=== PATIENT | female | born 1940 | race African-American/Black ===

== ENCOUNTER 2017-06-28 07:37 | Outpatient (CLI) | payer MEDICARE | END 2017-06-28 07:38 | disposition home or self-care (01) | LOC: BICMAMMO 07:37 | PROVIDERS: ATTEND Specialist | DX: Z12.31 Encounter for screening mammogram for malignant neoplasm of breast (principal) | CPT/HCPCS: 77063; G0202; 77067 ==

== ENCOUNTER 2018-09-23 09:59 | Outpatient (CLI) | payer MEDICARE ==
--- NOTE | 2018-09-23 13:01 | BD ---
BONE DENSITOMETRY USING DEXA: Date: 09/23/18 HISTORY: Postmenopausal screening for osteoporosis. FINDINGS: Lumbar Spine: BMD (g/cm2) L1 0.974 T-Score: -0.1 Z-Score: 1.6 L2 1.080 T-Score: 0.5 Z-Score: 2.4 L3 1.205 T-Score: 1.1 Z-Score: 3.1 L4 1.173 T-Score: 1.0 Z-Score: 3.1 L1-L4 1.113 T-Score: 0.6 Z-Score: 2.6 Femoral Neck: 0.572 T-Score: -2.5 Z-Score: -0.9 Total Femur: 0.750 T-Score: -1.6 Z-Score: -0.3 IMPRESSION: Osteoporosis. POS: OFF
--- NOTE | 2018-09-24 15:33 | MMO ---
Bilateral MAMMO Bilat Screen [facility]. CLINICAL HISTORY: Patient is 78 years old and is seen for screening. The patient has the following family history of breast cancer: maternal aunt, at age 75. The patient has no personal history of cancer. The patient has a history of left Excisional Biopsy in May, - adh. VIEWS: The views performed were: bilateral craniocaudal with tomosynthesis and bilateral mediolateral oblique with tomosynthesis. FILMS COMPARED: The present examination has been compared to prior imaging studies performed at [facility] on 07/11/2000, 06/25/2002, 01/21/2004, 02/02/2004, 07/28/2004, 01/23/2005, 02/01/2006, 02/27/2007, 03/12/2008, 03/15/2009, 03/22/2010, 03/26/2011, 05/25/2013, 05/26/2014, 06/17/2015, 06/21/2016 and 06/28/2017. MAMMOGRAM FINDINGS: There are scattered fibroglandular densities. Finding 1: No suspicious calcifications or masses are seen. Benign calcifications are noted bilaterally. Finding 2: There is a stable post-surgical scar seen in the left breast. IMPRESSION: ALL ABOVE FINDINGS ARE BENIGN. A ROUTINE FOLLOW-UP MAMMOGRAM IN 1 YEAR IS RECOMMENDED. THE RESULTS OF THIS EXAM WERE SENT TO THE PATIENT. ACR BI-RADS Category 2 - Benign finding MAMMOGRAPHY NOTE: 1. A negative mammogram report should not delay a biopsy if a dominant of clinically suspicious mass is present. 2. Approximately 10% to 15% of breast cancers are not detected by mammography. 3. Adenosis and dense breasts may obscure an underlying neoplasm.
== END 2018-09-23 10:00 | disposition home or self-care (01) ==
LOC: BICMAMMO 09:59
PROVIDERS: ATTEND Specialist
DX: Z12.31 Encounter for screening mammogram for malignant neoplasm of breast (principal); Z13.820 Encounter for screening for osteoporosis; M81.0 Age-related osteoporosis without current pathological fracture; Z80.3 Family history of malignant neoplasm of breast; Z98.890 Other specified postprocedural states
CPT/HCPCS: 77063; 77067; 77080

== ENCOUNTER 2019-09-30 13:53 | Outpatient (CLI) | payer MEDICARE ==
--- NOTE | 2019-09-30 15:02 | MMO ---
Bilateral MAMMO Bilat Screen [facility]. CLINICAL HISTORY: Patient is 79 years old and is seen for screening. The patient has the following family history of breast cancer: maternal aunt, at age 75. The patient has no personal history of cancer. The patient has a history of left Excisional Biopsy in May, - . VIEWS: The views performed were: bilateral craniocaudal with tomosynthesis; bilateral mediolateral oblique with tomosynthesis; and right mediolateral oblique. FILMS COMPARED: The present examination has been compared to prior imaging studies performed at [facility] on 06/21/2016, 06/28/2017 and 09/23/2018. This study has been interpreted with the assistance of computer-aided detection. MAMMOGRAM FINDINGS: There are scattered fibroglandular densities. There is a stable post-surgical scar seen in the left breast. There are no suspicious masses, suspicious calcifications, or new areas of architectural distortion. IMPRESSION: THERE IS NO MAMMOGRAPHIC EVIDENCE OF MALIGNANCY. A ROUTINE FOLLOW-UP MAMMOGRAM IN 1 YEAR IS RECOMMENDED. THE RESULTS OF THIS EXAM WERE SENT TO THE PATIENT. ACR BI-RADS Category 2 - Benign finding MAMMOGRAPHY NOTE: 1. A negative mammogram report should not delay a biopsy if a dominant of clinically suspicious mass is present. 2. Approximately 10% to 15% of breast cancers are not detected by mammography. 3. Adenosis and dense breasts may obscure an underlying neoplasm. Reported by: INDIRA GRAVES MD Electonically Signed: [id number]
== END 2019-09-30 13:54 | disposition home or self-care (01) ==
LOC: BICMAMMO 13:53
PROVIDERS: ATTEND Specialist
DX: Z12.31 Encounter for screening mammogram for malignant neoplasm of breast (principal); Z80.3 Family history of malignant neoplasm of breast; Z91.89 Other specified personal risk factors, not elsewhere classified
CPT/HCPCS: 77063; 77067

== ENCOUNTER 2020-10-10 13:03 | Outpatient (CLI) | payer MEDICARE | END 2020-10-10 13:04 | disposition home or self-care (01) | LOC: BICMAMMO 13:03 | PROVIDERS: ATTEND Specialist | DX: Z12.31 Encounter for screening mammogram for malignant neoplasm of breast (principal); M81.0 Age-related osteoporosis without current pathological fracture; M85.89 Other specified disorders of bone density and structure, multiple sites; Z80.3 Family history of malignant neoplasm of breast | CPT/HCPCS: 77063; 77067; 77080 ==

== ENCOUNTER 2023-02-03 13:09 | Inpatient (IN) | payer MEDICARE, OTHER ==
[2023-02-03 13:59] LABS: Bacteria/HPF None Seen HPF (None Seen); Bilirubin Negative (Negative); Blood, Urine Negative (Negative); CAUTI Indications for Culture Alt mental st,lethar; Clarity Clear (Clear); Glucose, Urine (Dipstick) Normal (Negative); Ketone, Urine Negative (Negative); Leukocyte Negative Leu/uL (Negative); Nitrite Negative (Negative); Protein, Urine (Dipstick) Negative (Neg-Trace); RBC/HPF 0-3 HPF (0-3); Specific Gravity, Urine 1.017 (1.002-1.036); Squamous Epithelial 0-3 HPF (0-3); Urobilinogen Normal mg/dL (Less than 2); WBC/HPF 0-3 HPF (0-3); pH, Urine 7.5 (5.0-9.0)
[2023-02-03 14:02] LABS: Urine Culture Reflex No No
[2023-02-03 14:17] LABS: #Basophils 0.1 thou/uL (0.0-0.2); #Eosinphils 0.3 thou/uL (0.0-0.7); #Monocytes 0.6 thou/uL (0.11-0.59); #Neutrophils 4.6 thou/uL (1.40-6.50); %Basophils 0.8 % (0.0-1.0); %Eosinophils 3.5 % (0.0-10.0); %Lymphocytes 28.1 % (21.0-51.0); %Monocytes 8.2 % (0.0-10.0); %Neutrophils 59.1 % (42.0-75.0); Hemoglobin 12.4 g/dL (12.0-16.0); Mean Corpuscular HGB CONC 30.8 g/dL (32.0-36.0); Mean Corpuscular Hemoglobin 29.6 pg (27.0-31.0); Mean Corpuscular Volume 96.2 fl (78.0-98.0); Mean Platelet Volume 10.5 fL (7.4-10.4); Platelet Count 235 10x3/uL (130-400); RBC Distribution Width 14.7 % (11.5-14.5); Red Blood Cell (RBC) Count 4.19 mill/uL (4.20-5.40); White Blood Cell (WBC) Count 7.8 10x3/uL (4.8-10.8)
[2023-02-03 14:39] LABS: ALT (SGPT) 22 U/L (8-55); AST (SGOT) 24 U/L (5-34); Albumin 4.2 g/dL (3.4-4.8); Alkaline Phosphatase 45 U/L (40-110); Anion Gap 15 mmol/L (10-20); BUN (Urea Nitrogen) 32 mg/dL (9.8-20.1); Bilirubin, Total 0.2 mg/dL (0.2-1.2); Calc. Creatinine Clearance 0 mL/min (70-130); Calcium 9.3 mg/dL (7.8-10.44); Carbon Dioxide 25 mmol/L (23-31); Chloride 105 mmol/L (98-107); Estimated GFR 43; Glucose 115 mg/dL (83-110); Potassium 5.4 mmol/L (3.5-5.1); Protein, Total 7.2 g/dL (5.8-8.1); Sodium 140 mmol/L (136-145)
[2023-02-03] MEDS ORDERED: hydrALAZINE 20 MG/ML VIAL ONE (15:36)
[2023-02-03] MEDS ORDERED: Acetaminophen 325 MG TAB PO PRN (16:59)
[2023-02-03] MEDS ORDERED: Senokot S 8.6-50 MG TAB PO PRN (16:59)
[2023-02-03] MEDS ORDERED: Ondansetron PF 4 MG/2 ML Vial IVP PRN (16:59)
[2023-02-03] MEDS ORDERED: Zolpidem Tartrate 5 MG TAB PO PRN (16:59)
[2023-02-03] MEDS ORDERED: cloNIDine 0.1 MG TAB PO PRN (17:21)
[2023-02-03] MEDS ORDERED: Lorazepam 0.5 MG TAB PO PRN (17:22)
[2023-02-03 17:26] VITALS: BMI 22.1
[2023-02-03 18:01] LABS: Hemoglobin A1c 5.3 % (4.0-6.0)
[2023-02-03] MEDS: Sodium Chloride 0.9% 1,000 ML IV SCH (18:13)
[2023-02-03 18:15] LABS: Cardiac Risk 2.3 (Less than 4.5)
[2023-02-03 18:21] LABS: Troponin I Less than 0.010 ng/mL (< 0.028)
[2023-02-03 19:00] LABS: SARS-CoV-2 NAA Rapid Test Not Detected (NotDetected)
[2023-02-03] MEDS ORDERED: Famotidine 20 MG TAB PO SCH (21:00)
[2023-02-03] MEDS: Timolol 0.5% Ophth Soln 5 ml Bottle EA EYE SCH (21:07)
[2023-02-03] MEDS: Mirtazapine 30 MG TAB PO SCH (21:07)
[2023-02-03] MEDS: Atorvastatin Calcium 20 MG TAB PO SCH (21:07)
[2023-02-03 22:04] LABS: Troponin I Less than 0.010 ng/mL (< 0.028)
[2023-02-04] MEDS: Sodium Chloride 0.9% 1,000 ML IV SCH (02:07)
[2023-02-04 05:28] LABS: #Basophils 0.1 thou/uL (0.0-0.2); #Eosinphils 0.3 thou/uL (0.0-0.7); #Monocytes 0.5 thou/uL (0.11-0.59); #Neutrophils 3.1 thou/uL (1.40-6.50); %Lymphocytes 36.9 % (21.0-51.0); %Monocytes 8.4 % (0.0-10.0); %Neutrophils 49.5 % (42.0-75.0); Hemoglobin 11.6 g/dL (12.0-16.0); Mean Corpuscular HGB CONC 31.4 g/dL (32.0-36.0); Mean Corpuscular Hemoglobin 29.8 pg (27.0-31.0); Mean Corpuscular Volume 95.1 fl (78.0-98.0); Mean Platelet Volume 10.5 fL (7.4-10.4); Platelet Count 209 10x3/uL (130-400); Red Blood Cell (RBC) Count 3.89 mill/uL (4.20-5.40); White Blood Cell (WBC) Count 6.3 10x3/uL (4.8-10.8)
[2023-02-04 05:58] LABS: Anion Gap 12 mmol/L (10-20); BUN (Urea Nitrogen) 29 mg/dL (9.8-20.1); Calc. Creatinine Clearance 35 mL/min (70-130); Calcium 8.4 mg/dL (7.8-10.44); Carbon Dioxide 23 mmol/L (23-31); Chloride 110 mmol/L (98-107); Estimated GFR 52; Glucose 83 mg/dL (83-110); Potassium 4.5 mmol/L (3.5-5.1); Sodium 140 mmol/L (136-145)
[2023-02-04] MEDS: Timolol 0.5% Ophth Soln 5 ml Bottle EA EYE SCH ×2 (09:00→21:55)
[2023-02-04] MEDS ORDERED: ADENOSINE 60 MG/20 ML SDV ONE (09:03)
[2023-02-04] MEDS: Amlodipine 5 MG TAB PO SCH (12:25)
[2023-02-04] MEDS: Famotidine 20 MG TAB PO SCH (12:26)
[2023-02-04] MEDS ORDERED: Sodium Chloride 0.9% 1,000 ML IV SCH ×2 (12:40→16:30)
[2023-02-04] MEDS ORDERED: cloNIDine 0.2 MG TAB PO SCH ×2 (13:00→21:00)
[2023-02-04] MEDS: Atorvastatin Calcium 20 MG TAB PO SCH (21:55)
[2023-02-04] MEDS: Mirtazapine 30 MG TAB PO SCH (21:56)
[2023-02-05] MEDS: Amlodipine 5 MG TAB PO SCH (09:40)
[2023-02-05] MEDS: Famotidine 20 MG TAB PO SCH (09:41)
[2023-02-05] MEDS: Timolol 0.5% Ophth Soln 5 ml Bottle EA EYE SCH ×2 (09:42→20:55)
[2023-02-05] MEDS: cloNIDine 0.1 MG TAB PO SCH ×2 (11:05→20:56)
[2023-02-05] MEDS: Atorvastatin Calcium 20 MG TAB PO SCH (20:56)
[2023-02-05] MEDS: Mirtazapine 30 MG TAB PO SCH (20:56)
[2023-02-06 07:01] LABS: #Eosinphils 0.3 thou/uL (0.0-0.7); #Monocytes 0.5 thou/uL (0.11-0.59); %Basophils 0.7 % (0.0-1.0); %Eosinophils 4.4 % (0.0-10.0); %Lymphocytes 32.1 % (21.0-51.0); %Monocytes 8.7 % (0.0-10.0); %Neutrophils 53.9 % (42.0-75.0); Hemoglobin 10.8 g/dL (12.0-16.0); Mean Corpuscular HGB CONC 31.9 g/dL (32.0-36.0); Mean Corpuscular Volume 94.2 fl (78.0-98.0); Mean Platelet Volume 10.4 fL (7.4-10.4); Platelet Count 188 10x3/uL (130-400); RBC Distribution Width 14.6 % (11.5-14.5); White Blood Cell (WBC) Count 5.6 10x3/uL (4.8-10.8)
[2023-02-06 07:22] LABS: Anion Gap 10 mmol/L (10-20); BUN (Urea Nitrogen) 24 mg/dL (9.8-20.1); Calc. Creatinine Clearance 34 mL/min (70-130); Calcium 8.5 mg/dL (7.8-10.44); Carbon Dioxide 25 mmol/L (23-31); Chloride 109 mmol/L (98-107); Estimated GFR 50; Glucose 80 mg/dL (83-110); Potassium 4.2 mmol/L (3.5-5.1); Sodium 140 mmol/L (136-145)
[2023-02-06] MEDS: cloNIDine 0.1 MG TAB PO SCH (08:44)
[2023-02-06] MEDS: Amlodipine 5 MG TAB PO SCH (08:47)
[2023-02-06] MEDS: Famotidine 20 MG TAB PO SCH (08:47)
[2023-02-06] MEDS ORDERED: cloNIDine 0.1mg/24 Hour PATCH TD SCH (09:00)
[2023-02-06 10:36] VITALS: BP 112/62; TEMP 97.5
== END 2023-02-06 11:15 | disposition home or self-care (01) | DRG 312 ==
LOC: ERS 13:09 → 2SW 17:03 → OBSVTOIN 02-05 12:29
PROVIDERS: ADMIT Specialist; ATTEND Specialist
DX: R55 Syncope and collapse (principal); N17.9 Acute kidney failure, unspecified; I10 Essential (primary) hypertension; H40.9 Unspecified glaucoma; M81.0 Age-related osteoporosis without current pathological fracture; N32.81 Overactive bladder; F41.1 Generalized anxiety disorder; F32.A Depression, unspecified; E55.9 Vitamin D deficiency, unspecified; E78.5 Hyperlipidemia, unspecified; Z79.899 Other long term (current) drug therapy; Z91.030 Bee allergy status; Z98.51 Tubal ligation status; Z96.652 Presence of left artificial knee joint
CPT/HCPCS: 36415; 36416; 70553; 71045; 78452; 80048; 80053; 80061; 81001; 83036; 84484; 85025; 93005; 93017; 93306; 96372; 96374; A9500; G0378; J0153; J0360; J1650; J7050

== ENCOUNTER 2023-04-16 08:46 | Outpatient (CLI) | payer MEDICARE | END 2023-04-16 08:47 | disposition home or self-care (01) | LOC: BICULT 08:46 | PROVIDERS: ATTEND Specialist | DX: N30.20 Other chronic cystitis without hematuria (principal); N26.1 Atrophy of kidney (terminal) | CPT/HCPCS: 76770 ==

== ENCOUNTER 2023-09-06 07:49 | Outpatient (CLI) | payer MEDICARE | END 2023-09-06 07:50 | disposition home or self-care (01) | LOC: BICCT 07:49 | PROVIDERS: ATTEND Specialist | DX: K44.9 Diaphragmatic hernia without obstruction or gangrene (principal) | CPT/HCPCS: 71260; 74160; 82565 ==

== ENCOUNTER 2024-02-11 09:24 | Outpatient (CLI) | payer MEDICARE | END 2024-02-11 09:25 | disposition home or self-care (01) | LOC: BICULT 09:24 | PROVIDERS: ATTEND Surgery | DX: R10.11 Right upper quadrant pain (principal) | CPT/HCPCS: 76705 ==